=== PATIENT | female | born 1990 | race Caucasian/White ===

== ENCOUNTER 2017-02-21 12:09 | Inpatient (IN) | payer OTHER ==
[~2017-02-21] VITALS: Ht 175.3 cm; Wt 80.8 kg
[2017-02-21] MEDS ORDERED: ONDANSETRON 2MG/ML, 2ML IVPush ONE (12:30)
[2017-02-21] MEDS ORDERED: SODIUM CHLORIDE 0.9% 1,000ML IVBOLUS ONE ×3 (12:30→17:30)
[2017-02-21] MEDS ORDERED: SODIUM CHLORIDE FLUSH 10ML SYR IVF ONE (12:30)
[2017-02-21] MEDS ORDERED: ONDANSETRON 2MG/ML, 2ML ONE (12:38)
[2017-02-21 12:53] LABS: HEMATOCRIT 38.6 % (34.6-47.8); HEMOGLOBIN 12.7 g/dL (11.7-16.4); WHITE BLOOD COUNT 6.2 x10^3/uL (3.4-10)
[2017-02-21 13:06] LABS: BLOOD UREA NITROGEN 6 mg/dL (7-18)
[2017-02-21 13:09] LABS: ASPARTATE AMINO TRANSFERASE 19 U/L (15-37)
[2017-02-21] MEDS ORDERED: LOPERAMIDE 2 MG CAPSULE PO ONE ×3 (14:30→17:30)
[2017-02-21] MEDS ORDERED: LOPERAMIDE 2 MG CAPSULE ONE ×4 (14:51→17:24)
[2017-02-21] MEDS ORDERED: D5%-0.45% NACL 1,000 ML IV ONE (18:57)
[2017-02-21] MEDS ORDERED: SODIUM CHLORIDE FLUSH 10ML SYR IVF PRN (19:00)
[2017-02-21 21:50] VITALS: BP 105/65
[2017-02-21] MEDS: LACTATED RINGERS 1,000 ML IV SCH (22:10)
[2017-02-21] MEDS: LOPERAMIDE 2 MG CAPSULE PO PRN (22:10)
[2017-02-21] MEDS: ONDANSETRON 2MG/ML, 2ML IVPush PRN (23:01)
[2017-02-21] MEDS ORDERED: ERYTHROMYCIN BASE 250 MG TABLET PO SCH (23:30)
[2017-02-22 01:20] VITALS: BP 100/63
[2017-02-22] MEDS: LOPERAMIDE 2 MG CAPSULE PO PRN (03:11)
[2017-02-22 05:17] LABS: ASPARTATE AMINO TRANSFERASE 17 U/L (15-37); BLOOD UREA NITROGEN 3 mg/dL (7-18)
[2017-02-22 05:21] LABS: HEMATOCRIT 30.9 % (34.6-47.8); HEMOGLOBIN 10.2 g/dL (11.7-16.4); WHITE BLOOD COUNT 4.6 x10^3/uL (3.4-10)
[2017-02-22] MEDS: LACTATED RINGERS 1,000 ML IV SCH (06:16)
[2017-02-22 07:40] VITALS: BP 98/63
[2017-02-22] MEDS ORDERED: MAGNESIUM SULFATE PMX 2GM/50ML 50 ML IV ONE (09:00)
[2017-02-22] MEDS ORDERED: POTASSIUM CHLORIDE 20 MEQ TAB.ER.PRT PO SCH (09:00)
[2017-02-22] MEDS ORDERED: POTASSIUM CHLORIDE 40 MEQ in SODIUM CHLORIDE 0.9% 500 ML IV ONE (09:00)
[2017-02-22] MEDS ORDERED: ACETAMINOPHEN 325 MG TABLET PO PRN (09:30)
[2017-02-22] MEDS ORDERED: ENOXAPARIN 40 MG/0.4 ML SQ SCH (09:30)
[2017-02-22] MEDS: CEFTRIAXONE PMX 1GM/50ML 50 ML IV SCH (11:49)
[2017-02-22] MEDS: METRONIDAZOLE PMX 500MG/100ML 100 ML IV SCH ×2 (12:48→21:33)
[2017-02-22] MEDS: PRENATAL VIT/IRON/FA 1 EACH TABLET PO SCH (12:48)
[2017-02-22] MEDS: LACTOBACILLUS CHEW TABLET PO SCH ×3 (12:48→21:34)
[2017-02-22 16:40] VITALS: BP 99/65
[2017-02-22] MEDS: POTASSIUM CHLORIDE 40 MEQ in SODIUM CHLORIDE 0.9% 1,000 ML IV SCH (16:58)
[2017-02-22 20:00] VITALS: BP 117/80
[2017-02-22] MEDS: ONDANSETRON 2MG/ML, 2ML IVPush PRN (20:06)
[2017-02-23] MEDS: POTASSIUM CHLORIDE 40 MEQ in SODIUM CHLORIDE 0.9% 1,000 ML IV SCH ×4 (00:17→22:31)
[2017-02-23 02:00] VITALS: BP 98/58
[2017-02-23] MEDS: METRONIDAZOLE PMX 500MG/100ML 100 ML IV SCH ×3 (05:23→21:59)
[2017-02-23] MEDS: LACTOBACILLUS CHEW TABLET PO SCH ×4 (05:23→21:59)
[2017-02-23 05:40] LABS: HEMATOCRIT 31.6 % (34.6-47.8); HEMOGLOBIN 10.4 g/dL (11.7-16.4); WHITE BLOOD COUNT 4.5 x10^3/uL (3.4-10)
[2017-02-23 06:01] LABS: BLOOD UREA NITROGEN 3 mg/dL (7-18)
[2017-02-23] MEDS: ONDANSETRON 2MG/ML, 2ML IVPush PRN ×2 (06:23→17:49)
[2017-02-23] MEDS: CEFTRIAXONE PMX 1GM/50ML 50 ML IV SCH (08:24)
[2017-02-23] MEDS: PRENATAL VIT/IRON/FA 1 EACH TABLET PO SCH (08:24)
[2017-02-23 08:40] VITALS: BP 124/76
[2017-02-23] MEDS: LOPERAMIDE 2 MG CAPSULE PO SCH ×3 (12:29→21:59)
[2017-02-23 15:00] VITALS: BP 116/75
[2017-02-23 20:33] VITALS: BP 120/75
[2017-02-24] MEDS: LOPERAMIDE 2 MG CAPSULE PO SCH ×6 (01:00→22:17)
[2017-02-24 03:55] VITALS: BP 96/59
[2017-02-24] MEDS: LACTOBACILLUS CHEW TABLET PO SCH ×4 (04:58→20:49)
[2017-02-24] MEDS: ONDANSETRON 2MG/ML, 2ML IVPush PRN ×5 (04:58→22:17)
[2017-02-24] MEDS: METRONIDAZOLE PMX 500MG/100ML 100 ML IV SCH ×3 (04:59→20:49)
[2017-02-24] MEDS: POTASSIUM CHLORIDE 40 MEQ in SODIUM CHLORIDE 0.9% 1,000 ML IV SCH (04:59)
[2017-02-24 06:26] LABS: BLOOD UREA NITROGEN 4 mg/dL (7-18)
[2017-02-24 06:30] LABS: HEMATOCRIT 33.2 % (34.6-47.8); HEMOGLOBIN 10.9 g/dL (11.7-16.4); WHITE BLOOD COUNT 6.2 x10^3/uL (3.4-10)
[2017-02-24 07:40] VITALS: BP 98/63
[2017-02-24] MEDS: PRENATAL VIT/IRON/FA 1 EACH TABLET PO SCH (09:25)
[2017-02-24] MEDS: CEFTRIAXONE PMX 1GM/50ML 50 ML IV SCH (09:25)
[2017-02-24] MEDS: SODIUM CHLORIDE 0.9% 1,000 ML IV SCH ×2 (11:46→22:20)
[2017-02-24 13:44] VITALS: BP 113/72
[2017-02-24 19:00] VITALS: BP 111/74
[2017-02-25 01:50] VITALS: BP 100/67
[2017-02-25] MEDS: LOPERAMIDE 2 MG CAPSULE PO SCH ×4 (02:07→14:00)
[2017-02-25] MEDS: ONDANSETRON 2MG/ML, 2ML IVPush PRN ×4 (02:07→18:06)
[2017-02-25] MEDS: METRONIDAZOLE PMX 500MG/100ML 100 ML IV SCH (04:28)
[2017-02-25] MEDS: LACTOBACILLUS CHEW TABLET PO SCH ×4 (06:08→20:02)
[2017-02-25 06:15] LABS: BLOOD UREA NITROGEN 4 mg/dL (7-18)
[2017-02-25 06:53] VITALS: BP 108/67
[2017-02-25] MEDS: CEFTRIAXONE PMX 1GM/50ML 50 ML IV SCH (09:15)
[2017-02-25] MEDS: PRENATAL VIT/IRON/FA 1 EACH TABLET PO SCH (09:15)
[2017-02-25] MEDS: SODIUM CHLORIDE 0.9% 1,000 ML IV SCH (10:19)
[2017-02-25 13:29] VITALS: BP 102/62
[2017-02-25] MEDS ORDERED: DIPHENOXYLATE/ATROPINE TABLET PO PRN (14:30)
[2017-02-25 18:46] VITALS: BP 106/66
[2017-02-26 01:30] VITALS: BP 101/64
[2017-02-26] MEDS ORDERED: ONDANSETRON 2MG/ML, 2ML ONE (05:07)
[2017-02-26] MEDS: LACTOBACILLUS CHEW TABLET PO SCH ×2 (05:15→11:00)
[2017-02-26] MEDS: ONDANSETRON 2MG/ML, 2ML IVPush PRN ×2 (05:15→10:25)
[2017-02-26 06:02] LABS: BLOOD UREA NITROGEN 6 mg/dL (7-18)
[2017-02-26 06:19] LABS: HEMOGLOBIN 11.5 g/dL (11.7-16.4)
[2017-02-26 08:14] VITALS: BP 99/60
[2017-02-26] MEDS: PRENATAL VIT/IRON/FA 1 EACH TABLET PO SCH (08:46)
[2017-02-26 13:19] VITALS: BP 105/66
[2017-02-26] MEDS ORDERED: PREN1TAB14 PO (13:32)
== END 2017-02-26 15:17 | disposition home or self-care (01) | DRG 781 ==
LOC: ED 14:43 → EDIP 18:56 → 3NE 19:30 → 4WST 02-22 10:19 → DCLOUNGE 02-26 14:49
PROVIDERS: ADMIT Obstetrics & Gynecology; ATTEND Obstetrics & Gynecology
DX: O99.281 Endocrine, nutritional and metabolic diseases complicating pregnancy, first trimester (principal); E87.2 Acidosis; E44.0 Moderate protein-calorie malnutrition; E86.0 Dehydration; W18.39XA Other fall on same level, initial encounter; A08.4 Viral intestinal infection, unspecified; O25.11 Malnutrition in pregnancy, first trimester; K92.89 Other specified diseases of the digestive system; O99.611 Diseases of the digestive system complicating pregnancy, first trimester; D64.9 Anemia, unspecified; E87.6 Hypokalemia; J45.909 Unspecified asthma, uncomplicated; O99.011 Anemia complicating pregnancy, first trimester; O99.511 Diseases of the respiratory system complicating pregnancy, first trimester; Z87.891 Personal history of nicotine dependence; Z68.26 Body mass index [BMI] 26.0-26.9, adult; Z3A.10 10 weeks gestation of pregnancy; Y93.89 Activity, other specified; Y92.89 Other specified places as the place of occurrence of the external cause; Y99.8 Other external cause status
CPT/HCPCS: 36415; 76801; 80048; 80053; 81003; 83735; 84132; 85025; 86645; 87046; 87324; 87328; 87329; 87899; 89055; 93005; 96361; 96374; J0696; J2405; J3480; J3475; J7030; J7040; J7120